=== PATIENT | male | born 1955 | race Caucasian/White ===

== ENCOUNTER → 2016-05-22 | Outpatient (CLI) | payer BC ==
[~2016-05-22] MED LIST: AMLO5TAB2 PO; ATEN100T PO; HCTZ25T OR; LISI-646 PO; POTA-165 PO; RIVA15TA PO; UBIQ100C3 PO
[2016-05-22 10:15] VITALS: BP 133/94
[2016-05-22 10:45] VITALS: BP 139/94
[2016-05-22 12:14] LABS: Basophils # (auto) 0 uL; Basophils % (auto) 0.4 % (0.0-2.0); Eosinophils # (auto) 0.2 uL; Eosinophils % (auto) 3.2 % (0.0-7.0); Hematocrit 46.8 % (41.0-53.0); Hemoglobin 15.4 g/dL (13.5-17.5); Lymphocytes # (auto) 1.2 uL; Mean Corpuscular Hemoglobin 32.1 pg (28.0-32.0); Mean Corpuscular Volume 97.4 fL (80.0-100.0); Monocytes # (auto) 0.5 uL; Monocytes % (auto) 8.7 % (0.0-12.0); Neutrophils # (auto) 4.1 uL; Neutrophils % (auto) 67.7 % (37.0-80.0); Platelet Count (auto) 225 10^3/uL (140-450); White Blood Cell 6.1 10^3/uL (4.4-10.8)
[2016-05-22 12:28] LABS: INR 1.08 (0.9-1.15); Partial Thromboplastin Time 26.4 sec (22.64-33.71); Prothrombin Time 11.1 sec (9.37-12.3)
[2016-05-22 12:46] LABS: Calcium 8.6 mg/dL (8.5-10.1); Potassium 3.9 mmol/L (3.5-5.1)
[2016-05-22 12:50] LABS: BUN/Creatinine Ratio 17.2
== END | disposition home or self-care (01) ==
LOC: Rad HDHVI 09:55
PROVIDERS: ATTEND Internal Medicine Cardiovascular Disease
DX: I10 Essential (primary) hypertension (principal); D64.9 Anemia, unspecified; R79.1 Abnormal coagulation profile
CPT/HCPCS: 36415; 71020; 80048; 85025; 85610; 85730; 93005; G0463

== ENCOUNTER 2016-05-24 10:31 | Day surgery (SDC) | payer BC ==
[~2016-05-24] VITALS: Ht 193 cm; Wt 152.0 kg
[2016-05-24] MEDS ORDERED: LIDOCAINE 2%HCL (LOCAL ANESTH.) INJ 20ML MDV ONE (11:49)
[2016-05-24] MEDS ORDERED: VANCOMYCIN HCL 1000 MG VL IR ONE (13:30)
[2016-05-24] MEDS ORDERED: VANCOMYCIN 1GM/250ML D5W 250 ML IV ONE (13:30)
[2016-05-24] MEDS ORDERED: ceFAZolin 1GM/50ML D5W 50 ML IV ONE (13:30)
[2016-05-24] MEDS ORDERED: HYDROcodone-ACET 5/325MG TAB PO PRN (16:15)
[2016-05-24] MEDS ORDERED: ACETAMINOPHEN 325 MG TAB PO PRN (16:15)
== END 2016-05-24 17:51 | disposition home or self-care (01) ==
LOC: CATH 10:31
PROVIDERS: ATTEND Internal Medicine Cardiovascular Disease
DX: I48.91 Unspecified atrial fibrillation (principal); I50.20 Unspecified systolic (congestive) heart failure; I51.9 Heart disease, unspecified
CPT/HCPCS: 33263; C1882; J0690; J2250; J3010; J3370; J7030; 99152

== ENCOUNTER → 2016-12-04 | Outpatient (CLI) | payer BC ==
[2016-12-04 12:17] LABS: Urine Bilirubin Negative (Negative); Urine Blood Negative /uL (Negative); Urine Color Yellow (Yellow); Urine Glucose Normal (Normal); Urine Ketone Negative (Negative); Urine Nitrite Negative (Negative); Urine Urobilinogen Normal (Negative); Urine pH 5.5 (5.0-8.0)
[2016-12-04 12:28] LABS: Basophils # (auto) 0.1 uL; Basophils % (auto) 0.9 % (0.0-2.0); Eosinophils # (auto) 0.2 uL; Eosinophils % (auto) 2.7 % (0.0-7.0); Hematocrit 44.3 % (41.0-53.0); Hemoglobin 14.9 g/dL (13.5-17.5); Lymphocytes % (auto) 16.1 % (10.0-50.0); Mean Corpuscular Hemoglobin 32.5 pg (28.0-32.0); Mean Corpuscular Hgb Conc. 33.5 g/dL (32.0-36.0); Mean Platelet Volume 8.7 fL (6.9-10.8); Monocytes # (auto) 0.6 uL; Monocytes % (auto) 9.7 % (0.0-12.0); Neutrophils # (auto) 4.4 uL; Neutrophils % (auto) 70.6 % (37.0-80.0); Nucleated Red Blood Cells % 0.2 %; Platelet Count (auto) 225 10^3/uL (140-450); Red Cell Distribution Width 13.9 % (11.8-14.3); White Blood Cell 6.2 10^3/uL (4.4-10.8)
[2016-12-04 12:46] LABS: Albumin 3.7 g/dL (3.4-5.0); BUN/Creatinine Ratio 13.3; Calcium 9.2 mg/dL (8.5-10.1); Potassium 3.5 mmol/L (3.5-5.1); Total Protein 7.5 g/dL (6.4-8.2)
== END | disposition home or self-care (01) ==
LOC: LAB 07:48
PROVIDERS: ATTEND Internal Medicine Cardiovascular Disease
DX: I10 Essential (primary) hypertension (principal); E78.00 Pure hypercholesterolemia, unspecified; K74.1 Hepatic sclerosis; E11.9 Type 2 diabetes mellitus without complications; R97.20 Elevated prostate specific antigen [PSA]; R53.81 Other malaise; E03.9 Hypothyroidism, unspecified; D64.9 Anemia, unspecified; E55.9 Vitamin D deficiency, unspecified; N39.0 Urinary tract infection, site not specified
CPT/HCPCS: 36415; 80053; 80061; 81003; 82306; 83036; 84153; 84403; 84439; 84443; 85025

== ENCOUNTER → 2016-12-10 | Outpatient (CLI) | payer BC | END | disposition home or self-care (01) | LOC: Rad HDHVI 08:02 | PROVIDERS: ATTEND Internal Medicine Cardiovascular Disease | DX: I48.1 Persistent atrial fibrillation (principal); I42.0 Dilated cardiomyopathy | CPT/HCPCS: 93306 ==

== ENCOUNTER → 2016-12-19 | Outpatient (CLI) | payer BC ==
[~2016-12-19] VITALS: Ht 193 cm; Wt 150.6 kg
== END | disposition home or self-care (01) ==
LOC: Rad HDHVI 08:23
PROVIDERS: ATTEND Internal Medicine Cardiovascular Disease
DX: I48.4 Atypical atrial flutter (principal); I50.42 Chronic combined systolic (congestive) and diastolic (congestive) heart failure; I25.2 Old myocardial infarction
CPT/HCPCS: 78452; 93017; 96374; A9500

== ENCOUNTER → 2017-03-14 | Outpatient (CLI) | payer BC, OTHER ==
[2017-03-14 12:00] VITALS: BP 135/85
[2017-03-14 13:20] VITALS: BP 147/91
[2017-03-14 16:49] LABS: Magnesium 2.5 mg/dL (1.6-2.6); Potassium 3.9 mmol/L (3.5-5.1)
== END | disposition home or self-care (01) ==
LOC: CHF HDHVI 12:13
PROVIDERS: ATTEND Internal Medicine Cardiovascular Disease
DX: E83.42 Hypomagnesemia (principal); E87.5 Hyperkalemia; I25.10 Atherosclerotic heart disease of native coronary artery without angina pectoris; I48.91 Unspecified atrial fibrillation
CPT/HCPCS: 36415; 83735; 84132; 93005; G0463

== ENCOUNTER → 2017-08-16 | Outpatient (CLI) | payer OTHER | END | disposition home or self-care (01) | LOC: Rad HDHVI 15:48 | PROVIDERS: ATTEND Internal Medicine Cardiovascular Disease | DX: I48.0 Paroxysmal atrial fibrillation (principal); I42.0 Dilated cardiomyopathy; I50.23 Acute on chronic systolic (congestive) heart failure | CPT/HCPCS: 93306 ==

== ENCOUNTER → 2017-12-20 | Outpatient (CLI) | payer OTHER ==
[~2017-12-20] VITALS: Ht 193 cm; Wt 146.1 kg
[~2017-12-20] MED LIST changes: +AMLO5TAB13 PO; -AMLO5TAB2 PO; -POTA-165 PO; +POTA-180 PO
[2017-12-20 12:25] LABS: Urine Blood Negative /uL (Negative); Urine Specific Gravity 1.019 (1.001-1.035)
[2017-12-20 12:32] LABS: Albumin 3.6 g/dL (3.4-5.0); BUN/Creatinine Ratio 17.3; Calcium 8.4 mg/dL (8.5-10.1); Potassium 4.1 mmol/L (3.5-5.1)
[2017-12-20 12:35] LABS: Bilirubin, Total 1.1 mg/dL (0.2-1.0); Total Protein 7.4 g/dL (6.4-8.2)
[2017-12-20 12:36] LABS: Basophils # (auto) 0.1 uL; Eosinophils # (auto) 0.1 uL; Eosinophils % (auto) 1.8 % (0.0-7.0); Hematocrit 52.4 % (41.0-53.0); Hemoglobin 17.3 g/dL (13.5-17.5); Lymphocytes # (auto) 1.1 uL; Lymphocytes % (auto) 19.3 % (10.0-50.0); Mean Corpuscular Hemoglobin 32.4 pg (28.0-32.0); Mean Corpuscular Hgb Conc. 33.1 g/dL (32.0-36.0); Mean Corpuscular Volume 97.9 fL (80.0-100.0); Monocytes # (auto) 0.4 uL; Monocytes % (auto) 7.5 % (0.0-12.0); Neutrophils # (auto) 3.9 uL; Neutrophils % (auto) 70.4 % (37.0-80.0); Nucleated Red Blood Cells % 0.2 %; Platelet Count (auto) 262 10^3/uL (140-450); Red Blood Cells 5.35 10^6/uL (4.5-5.90); Red Cell Distribution Width 14.3 % (11.8-14.3); White Blood Cell 5.5 10^3/uL (4.4-10.8)
[2017-12-20 12:40] LABS: Free T4 (Free Thyroxine) 1.26 ng/dL (0.89-1.76)
[2017-12-20 12:41] LABS: Prostate Specific Antigen 0.29 ng/mL (0.0-4.0)
== END | disposition home or self-care (01) ==
LOC: Rad HDHVI 09:07
PROVIDERS: ATTEND Internal Medicine Cardiovascular Disease
DX: I10 Essential (primary) hypertension (principal); E66.9 Obesity, unspecified; I49.8 Other specified cardiac arrhythmias; E03.9 Hypothyroidism, unspecified; E11.9 Type 2 diabetes mellitus without complications; E55.9 Vitamin D deficiency, unspecified; C61 Malignant neoplasm of prostate; E29.1 Testicular hypofunction; D51.9 Vitamin B12 deficiency anemia, unspecified; N39.0 Urinary tract infection, site not specified; Z95.0 Presence of cardiac pacemaker
CPT/HCPCS: 36415; 78452; 80053; 80061; 81003; 82306; 82607; 83036; 84153; 84403; 84439; 84443; 85025; 93017; 96374; A9500

== ENCOUNTER → 2018-11-14 | Outpatient (CLI) | payer OTHER ==
[~2018-11-14] MED LIST changes: -AMLO5TAB13 PO; +AMLO5TAB15 PO
[2018-11-14 13:00] LABS: Urine Blood Negative /uL (Negative)
[2018-11-14 13:09] LABS: Basophils # (auto) 0 uL; Basophils % (auto) 0.7 % (0.0-2.0); Eosinophils # (auto) 0.2 uL; Eosinophils % (auto) 3.5 % (0.0-7.0); Hematocrit 48.4 % (41.0-53.0); Lymphocytes # (auto) 0.9 uL; Lymphocytes % (auto) 16.4 % (10.0-50.0); Mean Corpuscular Hemoglobin 32.3 pg (28.0-32.0); Mean Corpuscular Hgb Conc. 33.1 g/dL (32.0-36.0); Mean Corpuscular Volume 97.7 fL (80.0-100.0); Monocytes # (auto) 0.5 uL; Monocytes % (auto) 9.7 % (0.0-12.0); Neutrophils # (auto) 3.8 uL; Neutrophils % (auto) 69.7 % (37.0-80.0); Platelet Count (auto) 195 10^3/uL (140-450); Red Blood Cells 4.96 10^6/uL (4.5-5.90); Red Cell Distribution Width 14.1 % (11.8-14.3); White Blood Cell 5.5 10^3/uL (4.4-10.8)
[2018-11-14 15:52] LABS: Calcium 8.9 mg/dL (8.5-10.1); Potassium 3.9 mmol/L (3.5-5.1)
[2018-11-14 16:00] LABS: Albumin 3.8 g/dL (3.4-5.0); BUN/Creatinine Ratio 16.2; Bilirubin, Total 1.2 mg/dL (0.2-1.0)
[2018-11-14 16:25] LABS: Free T4 (Free Thyroxine) 1.14 ng/dL (0.89-1.76)
[2018-11-14 16:32] LABS: Prostate Specific Antigen 0.38 ng/mL (0.0-4.0)
== END | disposition home or self-care (01) ==
LOC: LAB 08:06
PROVIDERS: ATTEND Internal Medicine Cardiovascular Disease
DX: Z00.00 Encounter for general adult medical examination without abnormal findings (principal); E03.9 Hypothyroidism, unspecified; K90.9 Intestinal malabsorption, unspecified; C61 Malignant neoplasm of prostate; E29.1 Testicular hypofunction; N39.0 Urinary tract infection, site not specified; D51.9 Vitamin B12 deficiency anemia, unspecified; Z79.899 Other long term (current) drug therapy
CPT/HCPCS: 36415; 80053; 80061; 81003; 82306; 82607; 83036; 84153; 84403; 84439; 84443; 85025

== ENCOUNTER → 2019-08-04 | Outpatient (CLI) | payer OTHER ==
[~2019-08-04] VITALS: Ht 193 cm; Wt 154.2 kg
[2019-08-04 11:56] LABS: Basophils # (auto) 0 10 ^3/uL (0-0.2); Basophils % (auto) 0.7 % (0.0-2.0); Eosinophils # (auto) 0.1 10 ^3/uL (0-0.8); Eosinophils % (auto) 3.1 % (0.0-7.0); Hematocrit 44.8 % (41.0-53.0); Hemoglobin 14.7 g/dL (13.5-17.5); Lymphocytes # (auto) 0.8 10 ^3/uL (0.4-5.4); Lymphocytes % (auto) 18.3 % (10.0-50.0); Mean Corpuscular Hemoglobin 32.8 pg (28.0-32.0); Mean Corpuscular Hgb Conc. 32.8 g/dL (32.0-36.0); Monocytes # (auto) 0.5 10 ^3/uL (0-1.3); Monocytes % (auto) 10.9 % (0.0-12.0); Neutrophils # (auto) 3.1 10 ^3/uL (1.6-8.6); Platelet Count (auto) 179 10^3/uL (140-450); Red Blood Cells 4.48 10^6/uL (4.5-5.90); Red Cell Distribution Width 14.1 % (11.8-14.3); White Blood Cell 4.6 10^3/uL (4.4-10.8)
[2019-08-04 11:57] LABS: Urine Blood Negative /uL (Negative); Urine Specific Gravity 1.017 (1.001-1.035)
[2019-08-04 12:15] LABS: Potassium 4.1 mmol/L (3.5-5.1)
[2019-08-04 12:21] LABS: Free T4 (Free Thyroxine) 1.33 ng/dL (0.89-1.76); Prostate Specific Antigen 0.25 ng/mL (0.0-4.0)
[2019-08-04 12:25] LABS: Albumin 3.5 g/dL (3.4-5.0); BUN/Creatinine Ratio 15.7; Bilirubin, Total 1.1 mg/dL (0.2-1.0); Calcium 8.9 mg/dL (8.5-10.1); Total Protein 7.3 g/dL (6.4-8.2)
== END | disposition home or self-care (01) ==
LOC: Rad HDHVI 07:55
PROVIDERS: ATTEND Internal Medicine Cardiovascular Disease
DX: Z00.00 Encounter for general adult medical examination without abnormal findings (principal); I08.1 Rheumatic disorders of both mitral and tricuspid valves; C61 Malignant neoplasm of prostate; I10 Essential (primary) hypertension; I25.10 Atherosclerotic heart disease of native coronary artery without angina pectoris; I24.9 Acute ischemic heart disease, unspecified; E03.9 Hypothyroidism, unspecified; K90.9 Intestinal malabsorption, unspecified; E29.1 Testicular hypofunction; N39.0 Urinary tract infection, site not specified; D51.9 Vitamin B12 deficiency anemia, unspecified; Z95.0 Presence of cardiac pacemaker; Z79.899 Other long term (current) drug therapy
CPT/HCPCS: 36415; 78452; 80053; 80061; 81003; 82306; 82607; 83036; 84153; 84403; 84439; 84443; 85025; 93017; 93306; 96374; A9500

== ENCOUNTER 2020-05-21 09:42 | Inpatient (IN) | payer OTHER ==
[~2020-05-21] VITALS: Ht 193 cm; Wt 152.6 kg
[~2020-05-21 09:42] MED LIST changes: +AMLO-489 PO; -AMLO5TAB15 PO; -HCTZ25T OR; +HYDR25TA5 OR
[2020-05-21] MEDS ORDERED: SODIUM CHLORIDE 0.9% 1,000 ML IV ONE (10:15)
[2020-05-21 10:18] LABS: Basophils # (auto) 0.1 10 ^3/uL (0-0.2); Basophils % (auto) 1.1 % (0.0-2.0); Eosinophils # (auto) 0.1 10 ^3/uL (0-0.8); Eosinophils % (auto) 2.2 % (0.0-7.0); Hematocrit 44.8 % (41.0-53.0); Hemoglobin 15.3 g/dL (13.5-17.5); Lymphocytes # (auto) 0.9 10 ^3/uL (0.4-5.4); Lymphocytes % (auto) 15.2 % (10.0-50.0); Mean Corpuscular Hgb Conc. 34.2 g/dL (32.0-36.0); Mean Corpuscular Volume 99.4 fL (80.0-100.0); Monocytes # (auto) 0.6 10 ^3/uL (0-1.3); Monocytes % (auto) 9.2 % (0.0-12.0); Neutrophils # (auto) 4.5 10 ^3/uL (1.6-8.6); Neutrophils % (auto) 72.3 % (37.0-80.0); Nucleated Red Blood Cells % 0.1 %; Platelet Count (auto) 245 10^3/uL (140-450); Red Cell Distribution Width 14.1 % (11.8-14.3); White Blood Cell 6.2 10^3/uL (4.4-10.8)
[2020-05-21] MEDS ORDERED: IOHEXOL 300 MG/ML 100ML BOTTLE IJ ONE (10:45)
[2020-05-21 11:06] LABS: Albumin 3.4 g/dL (3.4-5.0); Calcium 8.7 mg/dL (8.5-10.1); Potassium 4.2 mmol/L (3.5-5.1)
[2020-05-21 11:08] LABS: BUN/Creatinine Ratio 16.3; Bilirubin, Total 0.8 mg/dL (0.2-1.0)
[2020-05-21 11:24] LABS: INR 1.13 (0.9-1.15); Partial Thromboplastin Time 31.6 sec (23.0-31.2)
[2020-05-21 12:36] LABS: Lipase 152 U/L (73-393); Magnesium 2.2 mg/dL (1.6-2.6)
[2020-05-21] MEDS ORDERED: PANTOPRAZOLE 40 MG TAB PO ONE (15:15)
[2020-05-21] MEDS ORDERED: MORPHINE SULF INJ 2 MG/ML SYRINGE 1ML IV PRN (15:15)
[2020-05-21] MEDS ORDERED: NITROGLYCERIN 0.4 MG SL TAB SL PRN (15:15)
[2020-05-21] MEDS: SODIUM CHLORIDE 0.9% 1,000 ML IV SCH (15:43)
[2020-05-21] MEDS ORDERED: ATOR10TA PO (15:50)
[2020-05-21] MEDS ORDERED: MAGN400T40 PO (15:51)
[2020-05-21] MEDS ORDERED: FEXO-42 PO (15:51)
[2020-05-21] MEDS ORDERED: ESOM20CA PO (15:51)
[2020-05-21] MEDS ORDERED: TRAM50TA2 PO (15:53)
[2020-05-21 18:00] VITALS: BP 117/76
[2020-05-21 18:12] LABS: Basophils # (auto) 0 10 ^3/uL (0-0.2); Basophils % (auto) 0.6 % (0.0-2.0); Eosinophils # (auto) 0.2 10 ^3/uL (0-0.8); Eosinophils % (auto) 2.1 % (0.0-7.0); Hematocrit 43.1 % (41.0-53.0); Hemoglobin 14.8 g/dL (13.5-17.5); Lymphocytes # (auto) 1.8 10 ^3/uL (0.4-5.4); Lymphocytes % (auto) 23.9 % (10.0-50.0); Mean Corpuscular Hemoglobin 33.8 pg (28.0-32.0); Mean Corpuscular Hgb Conc. 34.2 g/dL (32.0-36.0); Monocytes # (auto) 0.6 10 ^3/uL (0-1.3); Monocytes % (auto) 7.9 % (0.0-12.0); Neutrophils % (auto) 65.5 % (37.0-80.0); Nucleated Red Blood Cells % 0.1 %; Platelet Count (auto) 274 10^3/uL (140-450); Red Blood Cells 4.36 10^6/uL (4.5-5.90); Red Cell Distribution Width 13.7 % (11.8-14.3); White Blood Cell 7.7 10^3/uL (4.4-10.8)
[2020-05-21 19:24] LABS: Urine Bacteria NONE SEEN /hpf (None Seen); Urine Blood Negative /uL (Negative); Urine Mucus FEW (None Seen); Urine Specific Gravity 1.045 (1.001-1.035); Urine WBC 25 /hpf (0 - 3)
[2020-05-21 22:00] VITALS: BP 109/73
[2020-05-22] MEDS: SODIUM CHLORIDE 0.9% 1,000 ML IV SCH (04:02)
[2020-05-22 05:00] VITALS: BP 147/91
[2020-05-22 06:46] LABS: Basophils # (auto) 0 10 ^3/uL (0-0.2); Basophils % (auto) 0.8 % (0.0-2.0); Eosinophils # (auto) 0.2 10 ^3/uL (0-0.8); Eosinophils % (auto) 2.6 % (0.0-7.0); Hematocrit 37.1 % (41.0-53.0); Hemoglobin 12.6 g/dL (13.5-17.5); Lymphocytes # (auto) 1.2 10 ^3/uL (0.4-5.4); Lymphocytes % (auto) 19.9 % (10.0-50.0); Mean Corpuscular Hemoglobin 33.4 pg (28.0-32.0); Mean Corpuscular Hgb Conc. 33.9 g/dL (32.0-36.0); Mean Corpuscular Volume 98.7 fL (80.0-100.0); Monocytes # (auto) 0.6 10 ^3/uL (0-1.3); Monocytes % (auto) 9.6 % (0.0-12.0); Neutrophils % (auto) 67.1 % (37.0-80.0); Nucleated Red Blood Cells % 0.1 %; Platelet Count (auto) 226 10^3/uL (140-450); Red Blood Cells 3.76 10^6/uL (4.5-5.90); Red Cell Distribution Width 13.7 % (11.8-14.3)
[2020-05-22 09:00] VITALS: BP 135/76
[2020-05-22] MEDS ORDERED: CEFTRIAXONE SODIUM 2 GM in D5W 5% 50 ML IV ONE (11:30)
[2020-05-22 13:00] VITALS: BP 134/79
[2020-05-22] MEDS: metroNIDAZOLE 500MG/100ML 100 ML IV SCH ×2 (14:50→21:42)
[2020-05-22 17:00] VITALS: BP 106/79
[2020-05-22 21:00] VITALS: BP 128/79
[2020-05-22] MEDS: ATENOLOL 50 MG TAB PO SCH (21:43)
[2020-05-22] MEDS: MAGNESIUM OXIDE 400 MG TAB PO SCH ×2 (21:43→21:53)
[2020-05-22] MEDS: ATORVASTATIN 20 MG TAB PO SCH (21:43)
[2020-05-22] MEDS: LISINOPRIL 20 MG TAB PO SCH (21:44)
[2020-05-22] MEDS: amLODIPine BESYLATE 5 MG TAB PO SCH (21:52)
[2020-05-22] MEDS ORDERED: traMADol HCL 50 MG TAB PO PRN (22:00)
[2020-05-23 05:00] VITALS: BP 111/80
[2020-05-23] MEDS: metroNIDAZOLE 500MG/100ML 100 ML IV SCH ×3 (05:29→21:52)
[2020-05-23 05:54] LABS: Basophils # (auto) 0 10 ^3/uL (0-0.2); Basophils % (auto) 0.7 % (0.0-2.0); Eosinophils # (auto) 0.2 10 ^3/uL (0-0.8); Eosinophils % (auto) 3.2 % (0.0-7.0); Hemoglobin 12.8 g/dL (13.5-17.5); Lymphocytes % (auto) 19.5 % (10.0-50.0); Mean Corpuscular Hemoglobin 33.9 pg (28.0-32.0); Mean Corpuscular Hgb Conc. 34.7 g/dL (32.0-36.0); Mean Corpuscular Volume 97.7 fL (80.0-100.0); Monocytes # (auto) 0.5 10 ^3/uL (0-1.3); Monocytes % (auto) 9.8 % (0.0-12.0); Neutrophils # (auto) 3.5 10 ^3/uL (1.6-8.6); Neutrophils % (auto) 66.8 % (37.0-80.0); Nucleated Red Blood Cells % 0.1 %; Platelet Count (auto) 220 10^3/uL (140-450); Red Blood Cells 3.79 10^6/uL (4.5-5.90); Red Cell Distribution Width 13.4 % (11.8-14.3); White Blood Cell 5.2 10^3/uL (4.4-10.8)
[2020-05-23 08:15] VITALS: BP 113/77
[2020-05-23 09:00] VITALS: BP 113/77
[2020-05-23] MEDS: UBIQUINOL 100 MG PO SCH (10:00)
[2020-05-23] MEDS: MAGNESIUM OXIDE 400 MG TAB PO SCH ×3 (10:00→22:00)
[2020-05-23] MEDS: FEXOFENADINE HCL 60 MG TAB PO SCH (11:36)
[2020-05-23] MEDS: HCTZ 25 MG TAB PO SCH (11:36)
[2020-05-23] MEDS: PANTOPRAZOLE 40 MG TAB PO SCH (11:37)
[2020-05-23] MEDS: POTASSIUM CHL 10 Meq TABLET PO SCH (11:37)
[2020-05-23] MEDS: amLODIPine BESYLATE 5 MG TAB PO SCH ×2 (11:37→21:52)
[2020-05-23] MEDS: LISINOPRIL 20 MG TAB PO SCH ×2 (11:38→21:53)
[2020-05-23] MEDS: ATENOLOL 50 MG TAB PO SCH ×2 (11:38→21:53)
[2020-05-23 13:00] VITALS: BP 116/74
[2020-05-23] MEDS: CEFTRIAXONE SODIUM 2 GM in D5W 5% 50 ML IV SCH (13:19)
[2020-05-23 20:00] VITALS: BP 125/90
[2020-05-23] MEDS: ATORVASTATIN 20 MG TAB PO SCH (21:52)
[2020-05-23 21:53] VITALS: BP 125/90
[2020-05-24] MEDS: metroNIDAZOLE 500MG/100ML 100 ML IV SCH (05:09)
[2020-05-24 05:30] VITALS: BP_SYST 111; BP_SYST 122; BP_DIAS 64; BP_DIAS 78
[2020-05-24 07:05] LABS: Basophils # (auto) 0.1 10 ^3/uL (0-0.2); Basophils % (auto) 1.1 % (0.0-2.0); Eosinophils # (auto) 0.2 10 ^3/uL (0-0.8); Eosinophils % (auto) 2.9 % (0.0-7.0); Hematocrit 40.1 % (41.0-53.0); Hemoglobin 13.8 g/dL (13.5-17.5); Lymphocytes # (auto) 1.2 10 ^3/uL (0.4-5.4); Lymphocytes % (auto) 20.7 % (10.0-50.0); Mean Corpuscular Hemoglobin 33.7 pg (28.0-32.0); Mean Corpuscular Hgb Conc. 34.3 g/dL (32.0-36.0); Mean Corpuscular Volume 98.2 fL (80.0-100.0); Monocytes # (auto) 0.5 10 ^3/uL (0-1.3); Monocytes % (auto) 9.6 % (0.0-12.0); Neutrophils # (auto) 3.7 10 ^3/uL (1.6-8.6); Neutrophils % (auto) 65.7 % (37.0-80.0); Platelet Count (auto) 244 10^3/uL (140-450); Red Blood Cells 4.09 10^6/uL (4.5-5.90); Red Cell Distribution Width 13.6 % (11.8-14.3); White Blood Cell 5.6 10^3/uL (4.4-10.8)
[2020-05-24 08:48] VITALS: BP 134/76
[2020-05-24] MEDS: UBIQUINOL 100 MG PO SCH (10:00)
[2020-05-24] MEDS: MAGNESIUM OXIDE 400 MG TAB PO SCH (10:00)
[2020-05-24] MEDS: CEFTRIAXONE SODIUM 2 GM in D5W 5% 50 ML IV SCH (10:25)
[2020-05-24] MEDS: ATENOLOL 50 MG TAB PO SCH (10:27)
[2020-05-24] MEDS: amLODIPine BESYLATE 5 MG TAB PO SCH (10:29)
[2020-05-24] MEDS: FEXOFENADINE HCL 60 MG TAB PO SCH (10:30)
[2020-05-24] MEDS: HCTZ 25 MG TAB PO SCH (10:30)
[2020-05-24] MEDS: POTASSIUM CHL 10 Meq TABLET PO SCH (10:30)
[2020-05-24] MEDS: PANTOPRAZOLE 40 MG TAB PO SCH (10:31)
[2020-05-24] MEDS: LISINOPRIL 20 MG TAB PO SCH (10:31)
[2020-05-24 12:40] VITALS: BP 111/70
[2020-05-24 15:13] VITALS: BP 136/76
== END 2020-05-24 15:55 | disposition home or self-care (01) | DRG 378 ==
LOC: ER 09:42 → OVERFLOW 09:43 → WEST WING 17:36
PROVIDERS: ADMIT Internal Medicine Cardiovascular Disease; ATTEND Internal Medicine Cardiovascular Disease
DX: K57.33 Diverticulitis of large intestine without perforation or abscess with bleeding (principal); I48.20 Chronic atrial fibrillation, unspecified; Z68.41 Body mass index [BMI] 40.0-44.9, adult; E66.9 Obesity, unspecified; I25.10 Atherosclerotic heart disease of native coronary artery without angina pectoris; J31.0 Chronic rhinitis; K21.9 Gastro-esophageal reflux disease without esophagitis; K76.0 Fatty (change of) liver, not elsewhere classified; I10 Essential (primary) hypertension; Z96.642 Presence of left artificial hip joint; M51.36 Other intervertebral disc degeneration, lumbar region; N40.0 Benign prostatic hyperplasia without lower urinary tract symptoms; Z20.822 Contact with and (suspected) exposure to COVID-19; Z79.01 Long term (current) use of anticoagulants; Z86.73 Personal history of transient ischemic attack (TIA), and cerebral infarction without residual deficits; Z95.0 Presence of cardiac pacemaker; Z98.84 Bariatric surgery status; Z88.8 Allergy status to other drugs, medicaments and biological substances
CPT/HCPCS: 36415; 71046; 74177; 80053; 81001; 83690; 83735; 84484; 85025; 85610; 85730; 86850; 86900; 86901; 86920; 87426; 93005; 96360; 96361; G0378; J0696; J3490; J7060

== ENCOUNTER → 2020-06-10 | Outpatient (CLI) | payer OTHER ==
[~2020-06-10] MED LIST changes: +ATOR10TA PO; +ESOM20CA PO; +FEXO-42 PO; +MAGN400T40 PO; +TRAM50TA2 PO
== END | disposition home or self-care (01) ==
LOC: Rad HDHVI 09:00
PROVIDERS: ATTEND Internal Medicine Cardiovascular Disease
DX: I07.1 Rheumatic tricuspid insufficiency (principal); R00.2 Palpitations; E78.5 Hyperlipidemia, unspecified
CPT/HCPCS: 93306

== ENCOUNTER → 2020-06-23 | Outpatient (CLI) | payer OTHER ==
[~2020-06-23] VITALS: Ht 193 cm; Wt 152.9 kg
[~2020-06-23] MED LIST changes: +ADENOSINE 128 MG in GIVE UN-DILUTED 0 ML IV ONE; +ADENOSINE 90 MG/30 ML INJ IV ONE
== END | disposition home or self-care (01) ==
LOC: Rad HDHVI 07:55
PROVIDERS: ATTEND Internal Medicine Cardiovascular Disease
DX: I11.0 Hypertensive heart disease with heart failure (principal); I50.33 Acute on chronic diastolic (congestive) heart failure; R00.2 Palpitations; E78.5 Hyperlipidemia, unspecified; Z95.0 Presence of cardiac pacemaker
CPT/HCPCS: 78452; 93005; 96374; 96375; A9500; J0153

== ENCOUNTER → 2020-07-15 | Outpatient (CLI) | payer OTHER ==
[~2020-07-15] MED LIST changes: -ADENOSINE 128 MG in GIVE UN-DILUTED 0 ML IV ONE; -ADENOSINE 90 MG/30 ML INJ IV ONE; -LISI-646 PO; +LISI20TA28 PO
[2020-07-15 15:37] LABS: Urine Blood Negative /uL (Negative); Urine Specific Gravity 1.017 (1.001-1.035)
[2020-07-15 15:40] LABS: Albumin 3.7 g/dL (3.4-5.0); Calcium 9.1 mg/dL (8.5-10.1); Potassium 3.7 mmol/L (3.5-5.1)
[2020-07-15 15:44] LABS: Basophils # (auto) 0 10 ^3/uL (0-0.2); Basophils % (auto) 0.6 % (0.0-2.0); Eosinophils # (auto) 0.2 10 ^3/uL (0-0.8); Eosinophils % (auto) 2.5 % (0.0-7.0); Hematocrit 45.9 % (41.0-53.0); Hemoglobin 15.2 g/dL (13.5-17.5); Lymphocytes # (auto) 1.4 10 ^3/uL (0.4-5.4); Lymphocytes % (auto) 22.5 % (10.0-50.0); Mean Corpuscular Hgb Conc. 33.2 g/dL (32.0-36.0); Mean Corpuscular Volume 96.6 fL (80.0-100.0); Monocytes # (auto) 0.6 10 ^3/uL (0-1.3); Monocytes % (auto) 9.6 % (0.0-12.0); Neutrophils # (auto) 4.1 10 ^3/uL (1.6-8.6); Neutrophils % (auto) 64.8 % (37.0-80.0); Nucleated Red Blood Cells % 0.1 %; Platelet Count (auto) 221 10^3/uL (140-450); Red Blood Cells 4.75 10^6/uL (4.5-5.90); Red Cell Distribution Width 13.3 % (11.8-14.3); White Blood Cell 6.3 10^3/uL (4.4-10.8)
[2020-07-15 15:45] LABS: BUN/Creatinine Ratio 15.9; Bilirubin, Total 1.1 mg/dL (0.2-1.0); Total Protein 7.2 g/dL (6.4-8.2)
[2020-07-15 15:49] LABS: Free T4 (Free Thyroxine) 1.13 ng/dL (0.89-1.76)
[2020-07-15 15:50] LABS: Prostate Specific Antigen 0.23 ng/mL (0.0-4.0)
[2020-07-15 16:05] LABS: INR 1.08 (0.9-1.15); Partial Thromboplastin Time 28.3 sec (23.0-31.2)
== END | disposition home or self-care (01) ==
LOC: LAB 12:28
PROVIDERS: ATTEND Internal Medicine Cardiovascular Disease
DX: Z01.818 Encounter for other preprocedural examination (principal); C61 Malignant neoplasm of prostate; D51.3 Other dietary vitamin B12 deficiency anemia; I10 Essential (primary) hypertension; E11.9 Type 2 diabetes mellitus without complications; E55.9 Vitamin D deficiency, unspecified; D64.9 Anemia, unspecified; R00.2 Palpitations; R53.1 Weakness; R30.0 Dysuria; I51.7 Cardiomegaly; J98.11 Atelectasis; J84.89 Other specified interstitial pulmonary diseases; Z95.810 Presence of automatic (implantable) cardiac defibrillator
CPT/HCPCS: 36415; 71046; 80053; 80061; 81003; 82607; 83036; 84153; 84403; 84439; 84443; 85025; 85610; 85730

== ENCOUNTER → 2020-08-23 | Outpatient (CLI) | payer OTHER ==
[2020-08-23 11:41] LABS: Basophils # (auto) 0 10 ^3/uL (0-0.2); Basophils % (auto) 0.8 % (0.0-2.0); Eosinophils # (auto) 0.3 10 ^3/uL (0-0.8); Hemoglobin 15.1 g/dL (13.5-17.5); Lymphocytes # (auto) 1.3 10 ^3/uL (0.4-5.4); Lymphocytes % (auto) 25.8 % (10.0-50.0); Mean Corpuscular Hemoglobin 31.6 pg (28.0-32.0); Mean Corpuscular Hgb Conc. 33.6 g/dL (32.0-36.0); Monocytes # (auto) 0.5 10 ^3/uL (0-1.3); Monocytes % (auto) 10.2 % (0.0-12.0); Neutrophils # (auto) 2.9 10 ^3/uL (1.6-8.6); Neutrophils % (auto) 58.2 % (37.0-80.0); Nucleated Red Blood Cells % 0.1 %; Platelet Count (auto) 213 10^3/uL (140-450); Red Blood Cells 4.78 10^6/uL (4.5-5.90); Red Cell Distribution Width 14.1 % (11.8-14.3)
[2020-08-23 11:54] LABS: INR 1.06 (0.9-1.15); Partial Thromboplastin Time 27.7 sec (23.0-31.2)
[2020-08-23 12:00] LABS: Free T4 (Free Thyroxine) 1.21 ng/dL (0.89-1.76); Prostate Specific Antigen 0.2 ng/mL (0.0-4.0)
[2020-08-23 12:03] LABS: Calcium 9.1 mg/dL (8.5-10.1); Potassium 3.8 mmol/L (3.5-5.1)
[2020-08-23 12:10] LABS: Albumin 3.7 g/dL (3.4-5.0); BUN/Creatinine Ratio 21.5; Bilirubin, Total 0.9 mg/dL (0.2-1.0); Total Protein 7.2 g/dL (6.4-8.2)
[2020-08-23 15:38] LABS: Urine Blood Negative /uL (Negative); Urine Specific Gravity 1.022 (1.001-1.035)
== END | disposition home or self-care (01) ==
LOC: LAB 08:52
PROVIDERS: ATTEND Internal Medicine Cardiovascular Disease
DX: Z01.812 Encounter for preprocedural laboratory examination (principal); C61 Malignant neoplasm of prostate; D51.3 Other dietary vitamin B12 deficiency anemia; D64.9 Anemia, unspecified; E11.9 Type 2 diabetes mellitus without complications; E55.9 Vitamin D deficiency, unspecified; I10 Essential (primary) hypertension; R00.2 Palpitations; R53.1 Weakness; R30.0 Dysuria
CPT/HCPCS: 36415; 80053; 80061; 81003; 82306; 82607; 83036; 84153; 84403; 84439; 84443; 85025; 85610; 85730

== ENCOUNTER → 2021-02-14 | Outpatient (CLI) | payer OTHER, MEDICARE ==
[~2021-02-14] MED LIST changes: +CHOL500033 PO; +OMEP-434 PO
[2021-02-14 09:17] VITALS: BP 135/85
[2021-02-14 09:29] VITALS: BP 121/90
[2021-02-14 11:54] LABS: INR 1.07 (0.9-1.15); Partial Thromboplastin Time 26.6 sec (23.6-33.0)
[2021-02-14 11:58] LABS: BUN/Creatinine Ratio 18.7; Calcium 9.2 mg/dL (8.5-10.1); Potassium 4.3 mmol/L (3.5-5.1)
[2021-02-14 12:03] LABS: Basophils # (auto) 0 10 ^3/uL (0-0.2); Basophils % (auto) 0.8 % (0.0-2.0); Eosinophils # (auto) 0.1 10 ^3/uL (0-0.8); Eosinophils % (auto) 2.6 % (0.0-7.0); Hematocrit 42.7 % (41.0-53.0); Hemoglobin 14.2 g/dL (13.5-17.5); Lymphocytes # (auto) 1.1 10 ^3/uL (0.4-5.4); Lymphocytes % (auto) 20.6 % (10.0-50.0); Mean Corpuscular Hemoglobin 30.9 pg (28.0-32.0); Mean Corpuscular Hgb Conc. 33.2 g/dL (32.0-36.0); Monocytes # (auto) 0.6 10 ^3/uL (0-1.3); Neutrophils # (auto) 3.5 10 ^3/uL (1.6-8.6); Nucleated Red Blood Cells % 0.1 %; Red Blood Cells 4.59 10^6/uL (4.5-5.90); White Blood Cell 5.4 10^3/uL (4.4-10.8)
== END | disposition home or self-care (01) ==
LOC: Rad HDHVI 09:02
PROVIDERS: ATTEND Internal Medicine Cardiovascular Disease
DX: Z01.812 Encounter for preprocedural laboratory examination (principal); Z45.2 Encounter for adjustment and management of vascular access device; J98.11 Atelectasis; I51.7 Cardiomegaly; Z95.0 Presence of cardiac pacemaker
CPT/HCPCS: 36415; 71046; 80048; 85025; 85610; 85730; 93005; G0463

== ENCOUNTER 2021-02-16 07:09 | Day surgery (SDC) | payer OTHER, MEDICARE ==
[~2021-02-16] VITALS: Ht 193 cm; Wt 156.5 kg
[~2021-02-16 07:09] MED LIST changes: -UBIQ100C3 PO
[2021-02-16] MEDS ORDERED: LIDOCAINE 2%HCL (LOCAL ANESTH.) INJ 20ML MDV ONE (10:03)
[2021-02-16] MEDS ORDERED: VANCOMYCIN HCL 1000 MG VL ONE (11:12)
[2021-02-16] MEDS ORDERED: VANCOMYCIN 1GM/250ML 250 ML IV ONE (11:14)
[2021-02-16] MEDS ORDERED: fentaNYL CITRATE 100 MCG/2 ML VL ONE (11:18)
[2021-02-16] MEDS ORDERED: MIDAZOLAM HCL 2MG/2ML 2ml VIAL (1mg/ml) ONE (11:18)
[2021-02-16] MEDS ORDERED: ceFAZolin 1GM VL ONE (11:51)
== END 2021-02-16 14:02 | disposition home or self-care (01) ==
LOC: CATH 07:09
PROVIDERS: ATTEND Internal Medicine Cardiovascular Disease
DX: Z45.02 Encounter for adjustment and management of automatic implantable cardiac defibrillator (principal); I42.0 Dilated cardiomyopathy; E66.01 Morbid (severe) obesity due to excess calories; G47.30 Sleep apnea, unspecified; I48.20 Chronic atrial fibrillation, unspecified; Z20.822 Contact with and (suspected) exposure to COVID-19; Z79.02 Long term (current) use of antithrombotics/antiplatelets; Z86.73 Personal history of transient ischemic attack (TIA), and cerebral infarction without residual deficits; Z82.49 Family history of ischemic heart disease and other diseases of the circulatory system; Z82.5 Family history of asthma and other chronic lower respiratory diseases; Z83.79 Family history of other diseases of the digestive system; Z68.41 Body mass index [BMI] 40.0-44.9, adult
CPT/HCPCS: 33263; C1882; J0690; J2250; J3010; J3370; U0003; 33264; 99152; 99153

== ENCOUNTER 2021-02-18 19:43 | Inpatient (IN) | payer OTHER, MEDICARE ==
[~2021-02-18] VITALS: Ht 193 cm; Wt 155.5 kg
[2021-02-18] MEDS ORDERED: IOHEXOL 350 MG/ML 100ML IJ ONE (21:16)
[2021-02-18 21:40] LABS: Basophils # (auto) 0.1 10 ^3/uL (0-0.2); Basophils % (auto) 1.1 % (0.0-2.0); Eosinophils # (auto) 0.3 10 ^3/uL (0-0.8); Eosinophils % (auto) 3.2 % (0.0-7.0); Hematocrit 43.3 % (41.0-53.0); Hemoglobin 14.2 g/dL (13.5-17.5); Lymphocytes # (auto) 1.3 10 ^3/uL (0.4-5.4); Lymphocytes % (auto) 15.5 % (10.0-50.0); Mean Corpuscular Hemoglobin 30.1 pg (28.0-32.0); Mean Corpuscular Hgb Conc. 32.9 g/dL (32.0-36.0); Mean Corpuscular Volume 91.5 fL (80.0-100.0); Monocytes # (auto) 0.8 10 ^3/uL (0-1.3); Monocytes % (auto) 9.6 % (0.0-12.0); Neutrophils # (auto) 5.9 10 ^3/uL (1.6-8.6); Neutrophils % (auto) 70.6 % (37.0-80.0); Nucleated Red Blood Cells % 0.2 %; Red Blood Cells 4.73 10^6/uL (4.5-5.90); Red Cell Distribution Width 16.3 % (11.8-14.3); White Blood Cell 8.3 10^3/uL (4.4-10.8)
[2021-02-18 21:54] LABS: INR 1.04 (0.9-1.15)
[2021-02-18 21:57] LABS: Albumin 3.8 g/dL (3.4-5.0); Calcium 8.5 mg/dL (8.5-10.1); Potassium 3.6 mmol/L (3.5-5.1)
[2021-02-18 22:01] LABS: BUN/Creatinine Ratio 16.8; Bilirubin, Total 0.5 mg/dL (0.2-1.0); Total Protein 7.6 g/dL (6.4-8.2)
[2021-02-18] MEDS ORDERED: ASPirin 325 MG TAB PO ONE (22:30)
[2021-02-19] MEDS ORDERED: ACETAMINOPHEN 325 MG TAB PO PRN (03:15)
[2021-02-19] MEDS ORDERED: DOCUSATE SOD 100 MG CAP PO PRN (03:15)
[2021-02-19] MEDS ORDERED: NITROGLYCERIN 0.4 MG SL TAB SL PRN (04:45)
[2021-02-19] MEDS ORDERED: MORPHINE SULFATE INJECTION 2 MG/ML SYRG IV PRN (04:45)
[2021-02-19 05:39] LABS: Urine Bacteria NONE SEEN /hpf (None Seen); Urine Blood Negative /uL (Negative); Urine Mucus FEW (None Seen); Urine Specific Gravity 1.035 (1.001-1.035); Urine WBC 1 /hpf (0 - 3)
[2021-02-19] MEDS: SODIUM CHLOR 0.9% PF (SALINE LOCK) 10ML VIAL/SYR IV SCH ×3 (06:05→21:40)
[2021-02-19 06:36] LABS: Basophils # (auto) 0 10 ^3/uL (0-0.2); Basophils % (auto) 0.5 % (0.0-2.0); Eosinophils # (auto) 0.2 10 ^3/uL (0-0.8); Eosinophils % (auto) 2.6 % (0.0-7.0); Hematocrit 41.4 % (41.0-53.0); Hemoglobin 13.7 g/dL (13.5-17.5); Lymphocytes # (auto) 1.2 10 ^3/uL (0.4-5.4); Lymphocytes % (auto) 14.6 % (10.0-50.0); Mean Corpuscular Hemoglobin 30.3 pg (28.0-32.0); Mean Corpuscular Hgb Conc. 33.1 g/dL (32.0-36.0); Mean Corpuscular Volume 91.5 fL (80.0-100.0); Monocytes # (auto) 0.9 10 ^3/uL (0-1.3); Monocytes % (auto) 11.1 % (0.0-12.0); Neutrophils # (auto) 5.7 10 ^3/uL (1.6-8.6); Neutrophils % (auto) 71.2 % (37.0-80.0); Nucleated Red Blood Cells % 0.1 %; Red Blood Cells 4.52 10^6/uL (4.5-5.90); Red Cell Distribution Width 16.2 % (11.8-14.3)
[2021-02-19 07:00] LABS: Calcium 8.3 mg/dL (8.5-10.1); Potassium 3.6 mmol/L (3.5-5.1)
[2021-02-19 07:06] LABS: Albumin 3.6 g/dL (3.4-5.0); BUN/Creatinine Ratio 17.4; Bilirubin, Total 0.9 mg/dL (0.2-1.0); Total Protein 6.7 g/dL (6.4-8.2)
[2021-02-19 09:19] VITALS: BP 132/87
[2021-02-19] MEDS: ZINC SULFATE 220mg CAP or TAB PO SCH (09:34)
[2021-02-19] MEDS: FAMOTIDINE (10MG/ML) 2ML VL IV SCH (09:34)
[2021-02-19] MEDS: ASCORBIC ACID 500 MG TAB PO SCH ×2 (09:34→21:40)
[2021-02-19] MEDS: ASPirin 81 mg TAB PO SCH (09:34)
[2021-02-19] MEDS: MULTIPLE VITAMIN TAB PO SCH (09:34)
[2021-02-19] MEDS ORDERED: ENOXAPARIN SOD 40 MG/0.4 ML SYRINGE SC SCH (10:00)
[2021-02-19 12:46] VITALS: BP 146/87
[2021-02-19 17:34] VITALS: BP 135/90
[2021-02-19] MEDS ORDERED: ENOXAPARIN SOD 30 MG/0.3 ML SYRINGE IV ONE (17:45)
[2021-02-19] MEDS ORDERED: ENOXAPARIN SOD 80 MG/0.8ML SYRINGE SC ONE (18:30)
[2021-02-19] MEDS ORDERED: LORazepam 2MG/ML-1ML VIAL IV PRN (20:45)
[2021-02-19 20:57] LABS: Cholesterol 139 mg/dL (< 200)
[2021-02-19 20:59] LABS: HDL Cholesterol 42 mg/dL (40-59); LDL Cholesterol 82 mg/dL (< 100); Triglycerides 100 mg/dL (< 150)
[2021-02-19] MEDS: ATORVASTATIN 20 MG TAB PO SCH (21:40)
[2021-02-19] MEDS: RIVAROXABAN 15 MG TAB PO SCH (21:41)
[2021-02-19 22:00] VITALS: BP 133/66
[2021-02-20 04:27] LABS: Albumin 3.5 g/dL (3.4-5.0); Calcium 8.3 mg/dL (8.5-10.1); Potassium 3.4 mmol/L (3.5-5.1)
[2021-02-20 04:30] LABS: Bilirubin, Total 0.9 mg/dL (0.2-1.0); Total Protein 6.5 g/dL (6.4-8.2)
[2021-02-20 04:51] LABS: Basophils # (auto) 0 10 ^3/uL (0-0.2); Basophils % (auto) 0.8 % (0.0-2.0); Eosinophils # (auto) 0.2 10 ^3/uL (0-0.8); Eosinophils % (auto) 2.5 % (0.0-7.0); Hematocrit 40.4 % (41.0-53.0); Hemoglobin 13.8 g/dL (13.5-17.5); Lymphocytes # (auto) 0.9 10 ^3/uL (0.4-5.4); Lymphocytes % (auto) 14.6 % (10.0-50.0); Mean Corpuscular Hemoglobin 31.1 pg (28.0-32.0); Mean Corpuscular Hgb Conc. 34.1 g/dL (32.0-36.0); Mean Corpuscular Volume 91.3 fL (80.0-100.0); Monocytes # (auto) 0.7 10 ^3/uL (0-1.3); Monocytes % (auto) 11.3 % (0.0-12.0); Neutrophils # (auto) 4.5 10 ^3/uL (1.6-8.6); Neutrophils % (auto) 70.8 % (37.0-80.0); Red Blood Cells 4.42 10^6/uL (4.5-5.90); Red Cell Distribution Width 16.2 % (11.8-14.3); White Blood Cell 6.3 10^3/uL (4.4-10.8)
[2021-02-20 05:00] VITALS: BP 124/76
[2021-02-20] MEDS: SODIUM CHLOR 0.9% PF (SALINE LOCK) 10ML VIAL/SYR IV SCH ×3 (05:29→21:42)
[2021-02-20 08:30] VITALS: BP 133/86
[2021-02-20] MEDS: ASCORBIC ACID 500 MG TAB PO SCH ×2 (09:47→21:42)
[2021-02-20] MEDS: ZINC SULFATE 220mg CAP or TAB PO SCH (09:47)
[2021-02-20] MEDS: MULTIPLE VITAMIN TAB PO SCH (09:47)
[2021-02-20] MEDS: ASPirin 81 mg TAB PO SCH (09:47)
[2021-02-20] MEDS: RIVAROXABAN 15 MG TAB PO SCH ×2 (09:48→21:43)
[2021-02-20] MEDS: FAMOTIDINE (10MG/ML) 2ML VL IV SCH (09:50)
[2021-02-20] MEDS ORDERED: DexAMETHasone 4 MG TAB PO SCH (10:00)
[2021-02-20 13:23] VITALS: BP 143/99
[2021-02-20] MEDS: DexAMETHasone 4 MG TAB PO SCH (21:43)
[2021-02-20] MEDS: ATORVASTATIN 20 MG TAB PO SCH (21:43)
[2021-02-20 22:00] VITALS: BP 152/99
[2021-02-20] MEDS: HYDROcodone-ACET 5/325MG TAB PO PRN (22:33)
[2021-02-21 05:00] VITALS: BP 154/108
[2021-02-21] MEDS: dilTIAZem 25 MG/5 ML VIAL IV ONE ×2 (05:05→05:22)
[2021-02-21] MEDS: ATENOLOL 50 MG TAB ONE ×2 (05:14→05:23)
[2021-02-21] MEDS ORDERED: dilTIAZem 25 MG/5 ML VIAL IV ONE (05:15)
[2021-02-21] MEDS: ATENOLOL 50 MG TAB PO SCH ×3 (05:49→21:49)
[2021-02-21] MEDS: SODIUM CHLOR 0.9% PF (SALINE LOCK) 10ML VIAL/SYR IV SCH ×3 (06:00→21:47)
[2021-02-21] MEDS: ONDANSETRON HCL 4 MG/2 ML VIAL IV PRN ×2 (09:15→18:32)
[2021-02-21] MEDS: DexAMETHasone 4 MG TAB PO SCH ×2 (09:31→21:48)
[2021-02-21] MEDS: FAMOTIDINE (10MG/ML) 2ML VL IV SCH (09:31)
[2021-02-21] MEDS: ASPirin 81 mg TAB PO SCH (09:31)
[2021-02-21] MEDS: ZINC SULFATE 220mg CAP or TAB PO SCH (09:31)
[2021-02-21] MEDS: MULTIPLE VITAMIN TAB PO SCH (09:32)
[2021-02-21] MEDS: RIVAROXABAN 15 MG TAB PO SCH ×2 (09:32→21:49)
[2021-02-21] MEDS: ASCORBIC ACID 500 MG TAB PO SCH ×2 (09:32→21:49)
[2021-02-21] MEDS: amLODIPine BESYLATE 5 MG TAB PO SCH ×2 (09:32→21:49)
[2021-02-21] MEDS: HYDROcodone-ACET 5/325MG TAB PO PRN ×2 (09:33→18:32)
[2021-02-21] MEDS ORDERED: IOHEXOL 350 MG/ML 100ML IJ ONE (13:39)
[2021-02-21 17:02] VITALS: BP 139/86
[2021-02-21] MEDS: ATORVASTATIN 20 MG TAB PO SCH (21:48)
[2021-02-21 22:00] VITALS: BP 134/92
[2021-02-22 05:00] VITALS: BP 133/97
[2021-02-22] MEDS: SODIUM CHLOR 0.9% PF (SALINE LOCK) 10ML VIAL/SYR IV SCH ×3 (05:48→23:38)
[2021-02-22 08:00] VITALS: BP 122/86
[2021-02-22] MEDS: ZINC SULFATE 220mg CAP or TAB PO SCH (11:16)
[2021-02-22] MEDS: ASPirin 81 mg TAB PO SCH (11:16)
[2021-02-22] MEDS: FAMOTIDINE (10MG/ML) 2ML VL IV SCH (11:16)
[2021-02-22] MEDS: DexAMETHasone 4 MG TAB PO SCH ×2 (11:17→23:36)
[2021-02-22] MEDS: MULTIPLE VITAMIN TAB PO SCH (11:17)
[2021-02-22] MEDS: amLODIPine BESYLATE 5 MG TAB PO SCH ×2 (11:18→23:35)
[2021-02-22] MEDS: ASCORBIC ACID 500 MG TAB PO SCH ×2 (11:19→23:34)
[2021-02-22] MEDS: ATENOLOL 50 MG TAB PO SCH ×2 (11:19→23:37)
[2021-02-22] MEDS: RIVAROXABAN 15 MG TAB PO SCH ×2 (11:20→23:38)
[2021-02-22 12:00] VITALS: BP 132/92
[2021-02-22 17:00] VITALS: BP 107/64
[2021-02-22] MEDS ORDERED: POTASSIUM CHL 20 Meq TABLET PO ONE (17:45)
[2021-02-22 22:00] VITALS: BP 146/91
[2021-02-22] MEDS: ATORVASTATIN 20 MG TAB PO SCH (23:38)
[2021-02-23 05:00] VITALS: BP 125/88
[2021-02-23] MEDS: SODIUM CHLOR 0.9% PF (SALINE LOCK) 10ML VIAL/SYR IV SCH ×3 (07:08→21:56)
[2021-02-23 08:00] VITALS: BP 121/88
[2021-02-23] MEDS: FAMOTIDINE (10MG/ML) 2ML VL IV SCH (10:21)
[2021-02-23] MEDS: ASPirin 81 mg TAB PO SCH (10:21)
[2021-02-23] MEDS: ZINC SULFATE 220mg CAP or TAB PO SCH (10:27)
[2021-02-23] MEDS: MULTIPLE VITAMIN TAB PO SCH (10:27)
[2021-02-23] MEDS: DexAMETHasone 4 MG TAB PO SCH ×2 (10:27→21:52)
[2021-02-23] MEDS: amLODIPine BESYLATE 5 MG TAB PO SCH ×2 (10:28→21:56)
[2021-02-23] MEDS: ASCORBIC ACID 500 MG TAB PO SCH ×2 (10:29→21:52)
[2021-02-23] MEDS: ATENOLOL 50 MG TAB PO SCH ×2 (10:29→21:55)
[2021-02-23] MEDS: RIVAROXABAN 15 MG TAB PO SCH ×2 (10:30→21:53)
[2021-02-23 12:00] VITALS: BP 105/64
[2021-02-23 17:00] VITALS: BP 137/84
[2021-02-23 20:00] VITALS: BP 129/81
[2021-02-23] MEDS: ATORVASTATIN 20 MG TAB PO SCH (21:54)
[2021-02-24] MEDS: SODIUM CHLOR 0.9% PF (SALINE LOCK) 10ML VIAL/SYR IV SCH ×3 (06:59→22:00)
[2021-02-24 09:00] VITALS: BP 137/91
[2021-02-24] MEDS: ZINC SULFATE 220mg CAP or TAB PO SCH (10:00)
[2021-02-24] MEDS: amLODIPine BESYLATE 5 MG TAB PO SCH ×2 (10:00→22:00)
[2021-02-24] MEDS: MULTIPLE VITAMIN TAB PO SCH (10:00)
[2021-02-24] MEDS: ATENOLOL 50 MG TAB PO SCH ×2 (10:00→22:00)
[2021-02-24] MEDS: FAMOTIDINE (10MG/ML) 2ML VL IV SCH (10:00)
[2021-02-24] MEDS: DexAMETHasone 4 MG TAB PO SCH ×2 (10:00→22:00)
[2021-02-24] MEDS: ASPirin 81 mg TAB PO SCH (10:00)
[2021-02-24] MEDS: ASCORBIC ACID 500 MG TAB PO SCH ×2 (10:00→22:00)
[2021-02-24] MEDS: RIVAROXABAN 15 MG TAB PO SCH ×2 (10:00→22:13)
[2021-02-24 13:00] VITALS: BP 146/100
[2021-02-24 15:21] VITALS: BP 120/84
[2021-02-24 17:00] VITALS: BP 128/90
[2021-02-24 20:00] VITALS: BP 108/52
[2021-02-24] MEDS: levETIRAcetam 500 MG TAB PO SCH (21:48)
[2021-02-24] MEDS: ATORVASTATIN 20 MG TAB PO SCH (22:00)
[2021-02-24 22:39] VITALS: BP 108/52
[2021-02-25 05:13] VITALS: BP 152/88
[2021-02-25] MEDS: SODIUM CHLOR 0.9% PF (SALINE LOCK) 10ML VIAL/SYR IV SCH ×2 (06:00→09:34)
[2021-02-25 09:00] VITALS: BP 127/92
[2021-02-25] MEDS: FAMOTIDINE (10MG/ML) 2ML VL IV SCH (09:34)
[2021-02-25] MEDS: ASPirin 81 mg TAB PO SCH (09:35)
[2021-02-25] MEDS: ZINC SULFATE 220mg CAP or TAB PO SCH (09:35)
[2021-02-25] MEDS: ASCORBIC ACID 500 MG TAB PO SCH (09:35)
[2021-02-25] MEDS: DexAMETHasone 4 MG TAB PO SCH (09:35)
[2021-02-25] MEDS: levETIRAcetam 500 MG TAB PO SCH (09:35)
[2021-02-25] MEDS: MULTIPLE VITAMIN TAB PO SCH (09:36)
[2021-02-25] MEDS: ATENOLOL 50 MG TAB PO SCH (09:36)
[2021-02-25] MEDS: amLODIPine BESYLATE 5 MG TAB PO SCH (09:36)
[2021-02-25] MEDS: RIVAROXABAN 15 MG TAB PO SCH (10:00)
[2021-02-25 12:55] VITALS: BP 139/95
== END 2021-02-25 23:00 | disposition short-term general hospital (02) | DRG 641 ==
LOC: ER 19:49 → TELE 02-19 04:40 → TELE-WESTW 02-19 06:10
PROVIDERS: ADMIT Nurse Practitioner Family; ATTEND Internal Medicine Cardiovascular Disease
PROC: 5A09357 Assistance with Respiratory Ventilation, Less than 24 Consecutive Hours, Continuous Positive Airway Pressure (ICD-10-PCS; principal; 2021-02-21)
PROC: 5A09357 Assistance with Respiratory Ventilation, Less than 24 Consecutive Hours, Continuous Positive Airway Pressure (ICD-10-PCS; 2021-02-22)
PROC: 5A09357 Assistance with Respiratory Ventilation, Less than 24 Consecutive Hours, Continuous Positive Airway Pressure (ICD-10-PCS; 2021-02-23)
PROC: 5A09357 Assistance with Respiratory Ventilation, Less than 24 Consecutive Hours, Continuous Positive Airway Pressure (ICD-10-PCS; 2021-02-24)
DX: E87.6 Hypokalemia (principal); D68.59 Other primary thrombophilia; I42.9 Cardiomyopathy, unspecified; I50.22 Chronic systolic (congestive) heart failure; G40.209 Localization-related (focal) (partial) symptomatic epilepsy and epileptic syndromes with complex partial seizures, not intractable, without status epilepticus; Z68.41 Body mass index [BMI] 40.0-44.9, adult; I48.91 Unspecified atrial fibrillation; E11.9 Type 2 diabetes mellitus without complications; E66.01 Morbid (severe) obesity due to excess calories; Z20.822 Contact with and (suspected) exposure to COVID-19; G47.30 Sleep apnea, unspecified; I11.0 Hypertensive heart disease with heart failure; Z96.642 Presence of left artificial hip joint; Z96.653 Presence of artificial knee joint, bilateral; Z79.01 Long term (current) use of anticoagulants; Z79.899 Other long term (current) drug therapy; Z82.5 Family history of asthma and other chronic lower respiratory diseases; Z83.3 Family history of diabetes mellitus; Z86.73 Personal history of transient ischemic attack (TIA), and cerebral infarction without residual deficits; Z95.810 Presence of automatic (implantable) cardiac defibrillator; Z98.84 Bariatric surgery status; Z88.8 Allergy status to other drugs, medicaments and biological substances
CPT/HCPCS: 36415; 70450; 70496; 70498; 71045; 71260; 74177; 80053; 80061; 81001; 82962; 83735; 83880; 84484; 85025; 85610; 87426; 93005; 93306; 94660; 94762; 95819; 97110; 97116; 97163; 97530; G0378; J2405; J3490

== ENCOUNTER → 2021-03-15 | Outpatient (CLI) | payer OTHER ==
[~2021-03-15] MED LIST changes: +CYANOCOBALAMIN (B-12) 1000 MCG/1 ML VIAL IM ONE; +CYANOCOBALAMIN (B-12) 1000 MCG/1 ML VIAL ONE
[2021-03-15 09:30] VITALS: BP 123/91
[2021-03-15 11:20] VITALS: BP 123/95
[2021-03-15 11:49] LABS: Basophils # (auto) 0 10 ^3/uL (0-0.2); Basophils % (auto) 0.5 % (0.0-2.0); Eosinophils # (auto) 0.2 10 ^3/uL (0-0.8); Eosinophils % (auto) 3.4 % (0.0-7.0); Hematocrit 36.3 % (41.0-53.0); Lymphocytes # (auto) 0.6 10 ^3/uL (0.4-5.4); Lymphocytes % (auto) 8.8 % (10.0-50.0); Mean Corpuscular Hemoglobin 30.7 pg (28.0-32.0); Monocytes # (auto) 0.4 10 ^3/uL (0-1.3); Monocytes % (auto) 5.4 % (0.0-12.0); Neutrophils # (auto) 5.5 10 ^3/uL (1.6-8.6); Neutrophils % (auto) 81.9 % (37.0-80.0); Nucleated Red Blood Cells % 0.1 %; Red Cell Distribution Width 17.9 % (11.8-14.3); White Blood Cell 6.7 10^3/uL (4.4-10.8)
[2021-03-15 12:20] LABS: Albumin 2.5 g/dL (3.4-5.0); Calcium 8.1 mg/dL (8.5-10.1); Potassium 4.1 mmol/L (3.5-5.1)
[2021-03-15 12:24] LABS: BUN/Creatinine Ratio 14.1; Bilirubin, Total 0.5 mg/dL (0.2-1.0); Magnesium 2.2 mg/dL (1.6-2.6); Total Protein 5.9 g/dL (6.4-8.2)
== END | disposition home or self-care (01) ==
LOC: CHF HDHVI 09:42
PROVIDERS: ATTEND Internal Medicine Cardiovascular Disease
DX: I27.21 Secondary pulmonary arterial hypertension (principal); I11.0 Hypertensive heart disease with heart failure; I50.22 Chronic systolic (congestive) heart failure; I48.20 Chronic atrial fibrillation, unspecified; E11.9 Type 2 diabetes mellitus without complications; Z79.01 Long term (current) use of anticoagulants; Z95.810 Presence of automatic (implantable) cardiac defibrillator; Z79.899 Other long term (current) drug therapy; Z96.653 Presence of artificial knee joint, bilateral; Z86.73 Personal history of transient ischemic attack (TIA), and cerebral infarction without residual deficits
CPT/HCPCS: 36415; 71046; 80053; 83735; 85025; 96372; G0463; J3420

== ENCOUNTER → 2021-11-01 | Outpatient (CLI) | payer MEDICARE ==
[~2021-11-01] VITALS: Ht 193 cm; Wt 161.5 kg
[~2021-11-01] MED LIST changes: -CYANOCOBALAMIN (B-12) 1000 MCG/1 ML VIAL IM ONE; -CYANOCOBALAMIN (B-12) 1000 MCG/1 ML VIAL ONE
== END | disposition home or self-care (01) ==
LOC: Rad HDHVI 13:28
PROVIDERS: ATTEND Internal Medicine Cardiovascular Disease
DX: I50.43 Acute on chronic combined systolic (congestive) and diastolic (congestive) heart failure (principal); I48.20 Chronic atrial fibrillation, unspecified; I42.0 Dilated cardiomyopathy; I11.9 Hypertensive heart disease without heart failure; Z95.0 Presence of cardiac pacemaker
CPT/HCPCS: 78472; 96374; 96375; A9505

== ENCOUNTER → 2022-09-07 | Outpatient (CLI) | payer MEDICARE ==
[~2022-09-07] MED LIST changes: -AMLO-489 PO; +AMLO1TAB22 PO; -LISI20TA28 PO; +LISI20TA56 PO
== END | disposition home or self-care (01) ==
LOC: Rad HDHVI 12:55
PROVIDERS: ATTEND Internal Medicine Cardiovascular Disease
DX: M47.812 Spondylosis without myelopathy or radiculopathy, cervical region (principal); M48.02 Spinal stenosis, cervical region; M50.30 Other cervical disc degeneration, unspecified cervical region; M25.519 Pain in unspecified shoulder
CPT/HCPCS: 72125

== ENCOUNTER → 2022-10-22 | Outpatient (CLI) | payer MEDICARE | END | disposition home or self-care (01) | LOC: Rad HDHVI 10:49 | PROVIDERS: ATTEND Internal Medicine Cardiovascular Disease | DX: I08.1 Rheumatic disorders of both mitral and tricuspid valves (principal); I27.21 Secondary pulmonary arterial hypertension; R06.02 Shortness of breath; R00.2 Palpitations | CPT/HCPCS: 93306 ==

== ENCOUNTER → 2022-10-26 | Outpatient (CLI) | payer MEDICARE ==
[~2022-10-26] VITALS: Ht 193 cm; Wt 156.5 kg
[~2022-10-26] MED LIST changes: +ADENOSINE 90 MG/30 ML INJ IV ONE; +ADENOSINE IV ONE; +GIVE UN DILUTED IV ONE
== END | disposition home or self-care (01) ==
LOC: Rad HDHVI 08:49
PROVIDERS: ATTEND Internal Medicine Cardiovascular Disease
DX: I11.0 Hypertensive heart disease with heart failure (principal); I50.43 Acute on chronic combined systolic (congestive) and diastolic (congestive) heart failure; R06.02 Shortness of breath; R00.2 Palpitations; R07.89 Other chest pain; Z95.0 Presence of cardiac pacemaker
CPT/HCPCS: 78452; 93005; 96374; 96375; A9500; J0153

== ENCOUNTER → 2023-10-28 | Outpatient (CLI) | payer MEDICARE ==
[~2023-10-28] MED LIST changes: -ADENOSINE 90 MG/30 ML INJ IV ONE; -ADENOSINE IV ONE; -GIVE UN DILUTED IV ONE
== END | disposition home or self-care (01) ==
LOC: Rad HDHVI 07:52
PROVIDERS: ATTEND Internal Medicine Cardiovascular Disease
DX: I10 Essential (primary) hypertension (principal); R06.02 Shortness of breath
CPT/HCPCS: 93306

== ENCOUNTER → 2023-11-04 | Outpatient (CLI) | payer MEDICARE ==
[~2023-11-04] VITALS: Ht 193 cm; Wt 114.8 kg
[~2023-11-04] MED LIST changes: +ADENOSINE 90 MG/30 ML INJ IV ONE; +ADENOSINE 96 MG in GIVE UN-DILUTED 0 ML IV ONE
== END | disposition home or self-care (01) ==
LOC: Rad HDHVI 08:56
PROVIDERS: ATTEND Internal Medicine Cardiovascular Disease
DX: I11.0 Hypertensive heart disease with heart failure (principal); I50.33 Acute on chronic diastolic (congestive) heart failure; E78.5 Hyperlipidemia, unspecified; R00.2 Palpitations; R06.02 Shortness of breath; I48.0 Paroxysmal atrial fibrillation; I49.5 Sick sinus syndrome; Z95.0 Presence of cardiac pacemaker
CPT/HCPCS: 78452; 93005; 96374; 96375; A9500; J0153

== ENCOUNTER 2024-09-15 12:11 | Outpatient (CLI) | payer MEDICARE ==
[~2024-09-15 12:11] MED LIST changes: -ADENOSINE 90 MG/30 ML INJ IV ONE; -ADENOSINE 96 MG in GIVE UN-DILUTED 0 ML IV ONE
--- NOTE | 2024-09-15 14:42 | DVH ---
XY CHEST TWO VIEWS ROUTINE, HISTORY: SOB COMPARISON: CHEST TWO VIEWS ROUTINE on DOS: 03/15/21 CHEST TWO VIEWS ROUTINE on DOS: 03/15/21 TECHNICAL DATA: 1 view of the chest was obtained. FINDINGS: Lines and tubes: A cardiac pacer is seen. Cardiomediastinal silhouette: Enlarged Pulmonary vasculature: normal Lung expansion: normal Lung airspace: Left basilar consolidation with pleural effusion, similar to prior. Lung interstitium: normal Pleura: Left pleural effusion. Pneumothorax: no Bones: Unremarkable Other: no IMPRESSION: Left basilar consolidation with pleural effusion, similar to prior. Cardiomegaly.
== END 2024-09-15 17:51 | disposition home or self-care (01) ==
LOC: Rad HDHVI 12:11
PROVIDERS: ATTEND Internal Medicine Cardiovascular Disease
DX: J90 Pleural effusion, not elsewhere classified (principal); I51.7 Cardiomegaly; R06.02 Shortness of breath; Z95.0 Presence of cardiac pacemaker
CPT/HCPCS: 71046

== ENCOUNTER 2024-10-30 08:58 | Outpatient (CLI) | payer MEDICARE ==
--- NOTE | 2024-10-30 11:39 | DVH ---
XY CHEST TWO VIEWS ROUTINE, HISTORY: SOB COMPARISON: XY CHEST TWO VIEWS ROUTINE on DOS: 09/15/24, CHEST TWO VIEWS ROUTINE on DOS: 03/15/21, CHEST XRAY 1 VIEW on DOS: 02/18/21 XY CHEST TWO VIEWS ROUTINE on DOS: 09/15/24, CHEST TWO VIEWS ROUTINE on DOS: 03/15/21, CHEST XRAY 1 VIEW on DOS: 02/18/21 TECHNICAL DATA: 2 view of the chest was obtained. FINDINGS: Lines and tubes: A cardiac pacer is noted Cardiomediastinal silhouette: Enlarged. Pulmonary vasculature: normal Lung expansion: normal Lung airspace: Left basilar consolidation Lung interstitium: normal Pleura: Left effusion. Pneumothorax: no Bones: Unremarkable Other: no IMPRESSION: Moderate left effusion with left basilar consolidation.
== END 2024-10-30 17:00 | disposition home or self-care (01) ==
LOC: Rad HDHVI 08:58
PROVIDERS: ATTEND Internal Medicine Cardiovascular Disease
DX: J90 Pleural effusion, not elsewhere classified (principal); J70.4 Drug-induced interstitial lung disorders, unspecified; R06.02 Shortness of breath
CPT/HCPCS: 71046